=== PATIENT | female | born 1955 | race Two or more races ===

== ENCOUNTER → 2018-05-15 | Day surgery (SDC) | payer OTHER ==
--- NOTE | 2018-05-16 17:16 | PATH ---
Cytology Non-Gynecological Report Patient Name: IOANA MATT [facility]. Rec. #: [id number] /Age/Gender: 1955 (Age: 63) / F Account: [id number] Location: RADIOLOGY INTER Taken: 05/15/2018 Received: 05/15/2018 Reported: 05/16/2018 Physicians: Hugo Guy M.D. Specimen(s) Received LEFT THYROID FNA Clinical History Left thyroid Nodule, 1.38 x 1.18 x 2.01 cm Final Diagnosis THYROID, LEFT, FINE NEEDLE ASPIRATION: SATISFACTORY FOR EVALUATION. B[place]ES[place] CLASS II: BENIGN. CYTOLOGIC FINDINGS SHOW A BENIGN FOLLICULAR NODULE WITH FEATURES SUGGESTIVE OF CHRONIC LYMPHOCYTIC THYROIDITIS. FOLLICULAR CELLS WITH REACTIVE CHANGES DISPERSED SCATTERED CLUSTERS IN A BACKGROUND OF LYMPHOCYTES, LYMPHOHISTIOCYTIC AGGREGATES, AND LYMPHOID TANGLES PRESENT. Comment: Suggest clinical/radiologic and serologic correlation. Electronically Signed [place] Boogie M.D. Gross Description Received are eight direct smears, four of which are air-dried and Diff-Quik stained, and four of which are alcohol fixed and Pap stained. Also received is 20 ml of bloody formalin from which one cellblock is prepared.
== END | disposition home or self-care (01) ==
LOC: JRADIR 10:07
PROVIDERS: ATTEND Internal Medicine Endocrinology, Diabetes & Metabolism
PROC: 0G9G3ZX Drainage of Left Thyroid Gland Lobe, Percutaneous Approach, Diagnostic (ICD-10-PCS; principal; 2018-05-15)
PROC: BG44ZZZ Ultrasonography of Thyroid Gland (ICD-10-PCS; 2018-05-15)
DX: E04.1 Nontoxic single thyroid nodule (principal)
CPT/HCPCS: 76942; 88173; 88305-TC